=== PATIENT | female | born 1980 | race African-American/Black ===

== ENCOUNTER 2024-01-06 01:52 | Emergency (ER) | payer OTHER ==
[~2024-01-06] VITALS: Ht 157.5 cm; Wt 64.9 kg
[2024-01-06 02:21] VITALS: BP 102/65; PULSE 84; RESP 18; TEMP 97.4; O2SAT 99
[2024-01-06 04:35] VITALS: BP 102/65; PULSE 84; RESP 18; TEMP 97.4; O2SAT 99
== END 2024-01-06 04:35 | disposition left against medical advice (07) ==
LOC: MED 01:52
DX: M54.2 Cervicalgia (principal); Z53.21 Procedure and treatment not carried out due to patient leaving prior to being seen by health care provider
CPT/HCPCS: 99281